=== PATIENT | female | born 1955 | race Caucasian/White ===

== ENCOUNTER → 2016-07-21 | Outpatient (CLI) | payer BC ==
[~2016-07-21] MED LIST: DEXILANT60 MG PO; ESTRACE0.5 MG PO; LEVAQUIN 5500 MG/TA1 PO; LEVOXYL0.05 MG PO; PREDNISONE20 MG PO; RT SPIRIVA18 MCG IH; SINGULAIR 110 MG/TAB PO; ZOLOFT 100MG100 MG PO; ZYRTEC 10MG10 MG PO
== END ==
LOC: MC.RAD 08:00
DX: Z12.31 Encounter for screening mammogram for malignant neoplasm of breast (principal)

== ENCOUNTER → 2017-11-04 | Outpatient (CLI) | payer BC | LOC: MC.RAD 08:47 | DX: Z12.31 Encounter for screening mammogram for malignant neoplasm of breast (principal) ==

== ENCOUNTER 2018-02-12 08:26 | Day surgery (SDC) | payer BC ==
[~2018-02-12] VITALS: Ht 166.4 cm; Wt 89.2 kg
[~2018-02-12 08:26] MED LIST changes: -LEVOXYL0.05 MG PO; +LEVOXYL0.075 MG PO
[2018-02-12] MEDS ORDERED: 00186-0370-20 IH (08:47)
[2018-02-12 08:54] VITALS: BP 134/69; PULSE 73; TEMP 97.6
[2018-02-12 10:10] VITALS: BP 101/56; PULSE 66; TEMP 97.5
[2018-02-12 10:15] VITALS: BP 104/48; PULSE 57
[2018-02-12 10:30] VITALS: BP 116/63; PULSE 66
[2018-02-12 10:45] VITALS: BP 92/59; PULSE 63
== END 2018-02-12 11:30 | disposition home or self-care (01) ==
LOC: SDCO 08:26
DX: Z12.11 Encounter for screening for malignant neoplasm of colon (principal); K57.30 Diverticulosis of large intestine without perforation or abscess without bleeding; J44.9 Chronic obstructive pulmonary disease, unspecified; K21.9 Gastro-esophageal reflux disease without esophagitis; E03.9 Hypothyroidism, unspecified; K21.0 Gastro-esophageal reflux disease with esophagitis; K58.0 Irritable bowel syndrome with diarrhea; Z88.2 Allergy status to sulfonamides; Z90.710 Acquired absence of both cervix and uterus; Z86.010 Personal history of colon polyps
CPT/HCPCS: J2250; J2405; J3010; J7030

== ENCOUNTER → 2018-05-10 | Outpatient (CLI) | payer BC ==
[~2018-05-10] MED LIST changes: +00186-0370-20 IH
[2018-05-10 11:10] LABS: CREATININE, serum 0.81 mg/dL (0.52-1.25)
== END ==
LOC: COL.LAB 10:35
PROVIDERS: Family Medicine
DX: R31.9 Hematuria, unspecified (principal)

== ENCOUNTER → 2019-12-27 | Outpatient (CLI) | payer BC | LOC: MC.RAD 15:45 | DX: Z12.31 Encounter for screening mammogram for malignant neoplasm of breast (principal) ==

== ENCOUNTER → 2021-04-30 | Outpatient (CLI) | payer BC | LOC: MC.RAD 03-05 13:30 | DX: Z12.31 Encounter for screening mammogram for malignant neoplasm of breast (principal) ==

== ENCOUNTER → 2022-06-16 | Outpatient (CLI) | payer BC | LOC: MC.RAD 08:29 | DX: Z12.31 Encounter for screening mammogram for malignant neoplasm of breast (principal) ==